=== PATIENT | male | born 1960 | race Hispanic/Latino ===

== ENCOUNTER → 2018-10-22 | Outpatient (CLI) | payer OTHER ==
[~2018-10-22] MED LIST: ALEVE220 MG PO; CLARITIN-D 241 EACH PO; CLARITIN10 M2 PO; FLONASE16 GM; HYDROCHLOROTHIA25 MG PO; MONTELUKAST SOD10 MG PO; NAPROSYN500 MG PO; TYLENOL EXTRA500 MG PO
--- NOTE | 2018-10-22 18:18 | Diagnostic Imaging Report ---
EXAM: Renal Ultrasound INDICATION: ^BENIGN PROSTATIC HYPERPLASIA W/O LOWER URINARY COMPARISON: None TECHNIQUE: Transverse and longitudinal images of the kidneys and bladder were obtained. FINDINGS: Right Kidney: Length: 12.3 cm Appearance: Normal echogenicity. Collecting system: No hydronephrosis Stones: None Cyst/Mass: None Left Kidney: Length: 11.3 cm Appearance: Normal echogenicity. Collecting system: No hydronephrosis Stones: None Cyst/Mass: None Bladder: Normal The prostate is normal in caliber measuring 1.8 x 2.0 x 2.1 cm with an estimated volume of 3.9 cc. IMPRESSION: Normal renal ultrasound exam. Signed by: Dr. Erna Tracy M.D. on 10/22/2018 6:15 PM
== END ==
LOC: US 16:59
PROVIDERS: ATTEND Internal Medicine
DX: N40.0 Benign prostatic hyperplasia without lower urinary tract symptoms (principal)
CPT/HCPCS: 76770

== ENCOUNTER → 2020-03-24 | Outpatient (CLI) | payer OTHER ==
--- NOTE | 2020-03-24 08:36 | Diagnostic Imaging Report ---
Exam: Testicular ultrasound. Clinical History: Testicular pain Findings: Sonographic evaluation of the testicles. Both testes are normal in echogenicity and size without intratesticular mass. Normal symmetric bilateral blood flow. No evidence of testicular torsion. Right: The right testicle measures 4.2 x 2.3 x 3.0 cm and appears unremarkable. The right epididymis measures 1.2 x 0.6 x 0.9 cm and appears unremarkable. Small right hydrocele. Small right varicocele. Left: The left testicle measures 4.0 x 2.2 x 3.3 cm and appears unremarkable. The left epididymis measures 1.0 x 0.7 x 1.0 cm and contains spermatoceles measuring up to 1.5 cm. Small left hydrocele. No varicocele. Impression: No testicular torsion. Left spermatoceles measuring up to 1.5 cm. Small bilateral hydrocele. Small right varicocele. Signed by: Kelly Fitzgerald MD on 03/24/2020 8:33 AM
== END ==
LOC: US 07:25
PROVIDERS: ATTEND Internal Medicine
DX: L72.9 Follicular cyst of the skin and subcutaneous tissue, unspecified (principal); N50.819 Testicular pain, unspecified; N43.3 Hydrocele, unspecified; I86.1 Scrotal varices
CPT/HCPCS: 76870; 93976

== ENCOUNTER → 2022-03-23 | Outpatient (CLI) | payer OTHER | LOC: DX 10:20 | PROVIDERS: ATTEND Internal Medicine | DX: M85.88 Other specified disorders of bone density and structure, other site (principal); R05.9 Cough, unspecified; M54.50 Low back pain, unspecified | CPT/HCPCS: 71046; 72110; 77080 ==

== ENCOUNTER → 2024-06-23 | Day surgery (SDC) | payer OTHER ==
[2024-06-16 10:38] LABS: BASOPHILS % 0.7 % (0.0-1.0); EOSINOPHILS # (AUTO) 0.4 (0.0-0.4); EOSINOPHILS % 8.8 % (0.0-6.0); HEMATOCRIT 42.9 % (38.2-49.6); HEMOGLOBIN 14.1 g/dL (14.0-18.0); LYMPHOCYTES # (AUTO) 1.3 (1.0-3.2); LYMPHOCYTES % 29.4 % (18.0-39.1); MEAN CORPUSCULAR HEMOGLOBIN 31.9 pg (28-32); MEAN CORPUSCULAR HGB CONC 32.9 g/dL (31-35); MEAN CORPUSCULAR VOLUME 97.1 fL (81-99); MONOCYTES # (AUTO) 0.5 (0.2-0.8); MONOCYTES % 11.2 % (4.4-11.3); NEUTROPHILS # (AUTO) 2.3 (2.1-6.9); NEUTROPHILS % 49.7 % (38.7-80.0); PLATELET COUNT 188 x10e3/uL (140-360); RED BLOOD COUNT 4.42 x10e6/uL (4.3-5.7); WHITE BLOOD COUNT 4.56 x10e3/uL (4.8-10.8)
[~2024-06-23] MED LIST changes: +12 HOUR NASAL R15 ML; +ADVIL PM CAPLE1 EACH; +ATENOLOL50 MG PO; +CEFAZOLIN SODIUM 2 GM ONE; +CLARITIN10 MG PO; +DEXAMETHASONE SOD PHOS INJ 4 MG/ML SDV ONE; +EPHEDRINE SULFATE INJ 50 MG/ML VIAL ONE; +EPINEPHRINE HCL 1:1000 1ML 1 MG/ML AMP ONE; +EXCEDRIN EXTRA1 EAC1; +FENTANYL CITRATE/PF 100MCG/2 ML INJ ONE; +GLYCOPYRROLATE INJ 0.2 MG/ML VIAL ONE; +LACTATED RINGER'S 1,000 ML ONE; +LIDOCAINE HCL 2% LOCAL INJ 5 ML SDV VIAL INJ ONE; +MAGNESIUM OXID400 MG PO; +MIDAZOLAM HCL 2 MG/2 ML VIAL ONE; +MULTI-VITAMIN1 EACH PO; +ONDANSETRON HCL INJ 2MG/ML 2ML 2 MG/ML VIAL ONE; +PROPOFOL IV EMULSION 10 MG/ML 20 ML VIAL ONE; +ROPIVACAINE 0.5% 5 MG/ML 30 ML SDV ONE; +SEVOFLURANE INHAL SOLN 250 ML PEN BTL ONE; +VITAMIN D31250 MCG
[2024-06-23 11:20] VITALS: BP 127/83; PULSE 74; RESP 15; O2SAT 96
== END | disposition home or self-care (01) ==
LOC: OR 07:03
PROVIDERS: ATTEND Orthopaedic Surgery
DX: M75.121 Complete rotator cuff tear or rupture of right shoulder, not specified as traumatic (principal); M75.41 Impingement syndrome of right shoulder; M75.51 Bursitis of right shoulder; M75.01 Adhesive capsulitis of right shoulder; I10 Essential (primary) hypertension; R00.1 Bradycardia, unspecified; M06.9 Rheumatoid arthritis, unspecified; E55.9 Vitamin D deficiency, unspecified; Z88.6 Allergy status to analgesic agent; Z01.810 Encounter for preprocedural cardiovascular examination; Z01.812 Encounter for preprocedural laboratory examination; Z79.82 Long term (current) use of aspirin; Z79.899 Other long term (current) drug therapy; Z87.891 Personal history of nicotine dependence
CPT/HCPCS: 29826; 29827; 36415; 85025; 93005; C1713 ×2; J0171; J1100; J2001; J2250; J2405; J2704; J2795; J3010; J7121